=== PATIENT | male | born 2005 | race Caucasian/White ===

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

== ENCOUNTER 2023-09-19 00:16 | Emergency (ER) | payer BC, SELFPAY ==
[2023-09-19 00:18] VITALS: BP 137/80; PULSE 78; RESP 18; TEMP 36.6; O2SAT 99; BMI 24.3
--- NOTE | 2023-09-19 00:56 | EX.ED.DYSGE1 ---
HPI History of Present Illness Chief Complaint: Other, Pain/Inj Informant: patient Narrative Narrative: 18-year-old male presenting to the emergency department chief complaint of inability to swallow. Patient states that he intermittently will have some symptoms at night that he may be having a problem swallowing and that he needs to get drink of water and he drinks water and it resolves. Tonight he was laying in bed for about an hour and a half he felt like he could not swallow correctly. Water was not relieving his symptoms. He notes that he had hives to almonds a few years ago. He has been taking Zyrtec for substantial period of time and takes it before bedtime. He states he had tacos for dinner did not have any problems with that. He took a Zyrtec and lay down. He notes that he did have some peanuts around 2100. He states that since coming to the hospital everything seems to be fine. He did not notice any voice changes. He was not having any tightness in his chest or his back. He states if anything he felt somewhat tight in his throat. He just drank a glass of water and that went down normally. He looked in his throat and did not see any uvular swelling or tongue swelling. No lip swelling. He denies any rash. PFSH PFSH Medical History no medical history Home Medications cetirizine 10 mg tablet (24Hour Allergy) 10 mg PO DAILY PRN allergy symptoms 09/19/23 [History Last Taken Unknown] Allergy/AdvReac Type Severity Reaction Status Date / Time No Known Allergies Allergy Verified 09/19/23 00:17 Surgical History no surgical history Social History Smoking Status: Never smoker ROS ROS ED Constitutional Constitutional ED: Denies chills, fever(s) or weight loss Eyes Eyes: Denies change in vision or diplopia ENT ENT ED: Reports other Details: Difficulty swallowing Tightness in throat ; Denies ear pain, rhinorrhea or sore throat Cardiovascular Cardiovascular: Denies chest pain, orthopnea, palpitations or racing heartbeat Respiratory/Chest Respiratory/Chest: Denies cough, dyspnea or orthopnea Gastrointestinal Gastrointestinal: Denies abdominal pain, diarrhea, nausea or vomiting Genitourinary Genitourinary ED: Denies dysuria, hematuria or urinary frequency Musculoskeletal Musculoskeletal: Denies arthralgias or myalgias Integumentary Denies abscess or rash Neurologic Neurologic: Denies headache(s) or weakness Psychiatric Psychiatric: Denies anxiety, depression, suicidal ideation or suicidal thoughts Endocrine Endocrinology: Denies polydipsia, polyphagia or polyuria Allergic/Immunologic Allergic/Immunologic ED: Denies mouth swelling, tongue swelling or urticaria EXAM Physical Exam Const Vital Signs: 09/19/23 00:18 09/19/23 00:18 Temperature 97.9 F Temperature Source Oral Pulse Rate 78 Respiratory Rate 18 Respiratory Effort Normal Respiratory Pattern Normal Blood Pressure 137/80 H Blood Pressure Mean 99 Pulse Ox 99 Positive well nourished and well developed General Appearance ED: well developed HEENT Reports normocephalic, head/scalp atraumatic and moist mucous membranes HEENT Narrative: Lips tongue and uvula appears normal. No oral pharyngeal erythema. There is no posterior swelling of the pharynx that I can see. His voice sounds normal. There is no stridor. Palpation of the neck is normal. Eyes PERRL and EOMs intact bilaterally Neck no lymphadenopathy, supple and no JVD Resp normal respiratory effort and clear to auscultation bilaterally Cardio regular rate, regular rhythm and no murmurs GI normal to inspection, nondistended, normoactive bowel sounds and non-tender Palpation: soft Back/Spine no CVA tenderness and normal ROM Extremity normal to inspection General Extremety ED: Negative for edema General Extremity: Negative for edema Neuro oriented x3 and CN's II-XII intact bilaterally Sensorium / Orientation: alert Motor Exam: strength 5/5 throughout Psych mental status grossly normal Mood & Affect: Negative for depressed or tearful Skin no rashes or lesions noted and no wounds MDM MDM MDM Narrative Medical decision making narrative: Very difficult to say exactly what this was. He could have had some silent reflux which resulted in some mild swelling. He could have been having an allergic reaction that the Zyrtec has subsequently helped. At this point though I am not seeing anything acute. Should his symptoms return I recommend trying a Benadryl or coming back to the emergency department. At that point he may need to follow-up with ENT for further evaluation. History & Record Review Discussion w/independent historian: Patient Discharge Plan Triage Chief Complaint: Other, Pain/Inj ED Provider: Garcia Reilly Dx/Rx/DC Orders Clinical Impression: Dysphagia Instructions: ED Dysphagia (Adult) Prescriptions: No Action cetirizine [24Hour Allergy] 10 mg tablet 10 mg PO DAILY PRN (Reason: allergy symptoms) Primary Care Provider: Evelia Smalls Referrals: Evelia Smalls MD [Primary Care Provider] - As Needed Jah Viera MD [Med Staff - Active Staff] - As Needed (for ENT evaluation ) Disposition Disposition: Home, Self Care
[2023-09-19 00:57] VITALS: BP 132/87; PULSE 67; RESP 16; TEMP 36.6; O2SAT 99
== END 2023-09-19 00:59 | disposition home or self-care (01) ==
LOC: ED 00:52
PROVIDERS: Emergency Provider Emergency Medicine; PCP Family Medicine; Visit Provider Emergency Medicine
DX: R13.10 Dysphagia, unspecified (principal)
CPT/HCPCS: 99282

== ENCOUNTER → 2024-03-02 | Outpatient (CLI) | payer BC, SELFPAY ==
--- NOTE | 2024-03-02 14:01 | SP.MBSS_ITS ---
Modified Barium Swallow Patient Information Study Date: 03/02/24 Study Time: 13:00 Direct Billable Minutes: 60 Total Minutes procedure & reportin Diagnosis: Dysphagia R13.10 Referring Physician: Evelia Smalls Reason for Referral: Objectively assess swallow function, assess risk for aspiration, and determine recommendations for least restrictive diet textures and compensatory strategies to improve safety of swallow. Medical History: PMH: No significant PMH in EMR. Patient was seen in the ED for swallowing difficulty on 09/19/2023. He reported to [employer] that he had sensation of throat tightening and was concerned for anaphylaxis, so he presented to the ED. In ER physician documentation 09/19/2023 reads, Very difficult to say exactly what this was. He could have had some silent reflux which resulted in some mild swelling. He could have been having an allergic reaction that the yrte has subsequently helped. At this point though I am not seeing anything acute. Should his symptoms return I recommend trying a Benadryl or coming back to the emergency department. At that point he may need to follow-up with ENT for further evaluation. Per patient, he has had no follow-up w/ ENT. He does have a visit with an senior behavioral scientist planned for the end of this month. Patient reports known allergies to pollen and almonds. He denies difficulty swallowing food and drinks. Throat tightening and trouble swallowing is typically on his saliva. He continues to have throat tightening ~1X/month since September. He reports sensation of tightness in his throat, sensation of lump in his throat, and, at times heart palpitations, but no difficulty breathing. He occ has xerostomia, which he relieves w/ water. Of note, patient reports panic attacks tend to follow after the throat tightening. His PCP referred him for this MBSS. Current Diet Ordered: Regular textures / Thin liquids Dentition: WNL and Natural Teeth Mental Status: WNL Respiratory Status: Oxygenating on Room Air Penetration-Aspiration Scale Penetration-Aspiration Scale: OBJECTIVE ASSESSMENT OF SWALLOW FUNCTION (QUANTITATIVE ? PER TRIAL): PENETRATION / ASPIRATION SCALE (AGUILA): 1 = does not enter airway 2 = enters airway/above vocal folds/ejected 3 = enters airway/above vocal folds/not ejected 4 = enters airway/contacts vocal folds/ejected 5 = enters airway/contacts vocal folds/not ejected 6 = enters airway/below vocal folds/ejected 7 = enters airway/below vocal folds/not ejected despite effort 8 = enters airway/below vocal folds/no effort VIDEOFLOROSCOPIC SCALE SCORE (AGUILA): Grade I = aspiration of material that has penetrated into the laryngeal vestibule, intact cough reflex Grade II = aspiration < 10 % of the bolus, intact cough reflex Grade III = aspiration of < 10 % of the bolus, reduced cough reflex or aspiration of > 10 % of the bolus, intact cough reflex Grade IV = aspiration of > 10 % of the bolus, reduced cough reflex Penetration-Aspiration Scale Score Thin Liquid via teaspoon: Result: 1= does not enter airway Thin Liquid via teaspoon Trial 2: Result: 1= does not enter airway Thin Liquid via small single sip: cup: Result: 1= does not enter airway [place] Thick Liquid via small single sip: cup: Result: 1= does not enter airway Pudding via teaspoon: Result: 1= does not enter airway Comment: Pt expectorated >1/2 of the bolus. He reported feeling too nervous to swallow the bite of pudding. Oral Phase Labial Seal: Interlabial escape, no progression to anterior lip Tongue Control During Bolus Hold: Escape to lateral buccal cavity/floor of mouth (Patient held pudding in FOM) Bolus Transport/Lingual Motion: Brisk tongue motion Oral Residue: Majority of bolus remaining (Piecemeal deglutition of pudding with expectoration of >1/2 of the bolus) Pharyngeal Phase Initiation of Pharyngeal Swallow: Bolus head in valleculae Soft Palate Elevation: Trace column of contrast/air between soft palate and pharyngeal wall Laryngeal Elevation: Comp. Superior move thyroid cart w/comp. apprx arytenoid cart-epig pet Anterior Hyoid Excursion: Partial anterior movement Epiglottic Movement: Complete inversion Laryngeal Vestibule Closure at Height of Swallow: Complete; no air/contrast in laryngeal vestibule Pharyngeal Stripping Wave: Present - complete Pharyngoesophageal Segment Opening: Complete distension and complete duration; no obstruction of flow Tongue Base Retraction: Trace column of contrast between tongue base & post. pharyngeal wall Pharyngeal Residue: Trace residue within or on pharyngeal structures Esophageal Phase Esophageal Clearance: Esophageal retention w/ retrograde flow below pharyngoesophageal seg. Diagnosis/Impression Diagnosis: Oropharyngeal swallow functin grossly WNL Impression: Oropharyngeal swallow function is grossly WNL. Patient has timely swallow onset, good pharyngeal clearance, and complete airway closure during the swallow. No laryngeal penetration or aspiration. Patient did have piecemeal deglutition of trial of spoonful of pudding. He held the bite of pudding in his FOM and completed 2 swallows of small portion of the bolus prior to spitting out the remaining pudding in his mouth stating he could not swallow it because it made him too nervous. He requested water, which [employer] encouraged him to forego so he could complete remaining two trials in the study: cookie and thin liquids via straw. Patient stated he couldn't do anymore because he was too nervous and declined participation in the remainder of the study. TRAVELING ST[employer]PER provided him cup of water. The esophageal phase is primarily marked by... -Mild retention of liquids in the upper esophagus. -Mild retention of pudding in the lower esophagus. Retrograde flow of barium through the LES. Recommendations Diet: Regular Textures and Thin Liquids Compensatory Strategies: Small Bites, Small Sips, Slow Rate, Alternate bite s/solids and sips/liquids, Sitting upright and Remain sitting upright for 30 minutes after PO intake Recommend Repeat Modified Barium Swallow: No Need for Skilled Speech Therapy Services: No Recommended Referrals: GI Consult (Consider GI consult due to esophageal retention and patient reporting GERD symptoms (globus sensation)) Education Completed: 1. Described result of evaluation. Status Active ST Patient: Active Contact Information [facility] Speech [facility]:: Suzanne Shah M.A. [facility] [employer]? Speech-Language Pathologist?? [facility] [address] [place] [address]? [email or web address]?? [phone]
== END | disposition home or self-care (01) ==
LOC: RAD 12:49
PROVIDERS: PCP Family Medicine; Referring Provider Family Medicine; Visit Provider Family Medicine
DX: R13.10 Dysphagia, unspecified (principal)
CPT/HCPCS: 74230; 92611